=== PATIENT | female | born 2005 | race Caucasian/White ===

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

== ENCOUNTER 2024-07-14 18:52 | Emergency (ER) | payer OTHER ==
[~2024-07-14] VITALS: Ht 165.1 cm; Wt 68.0 kg
[~2024-07-14 18:52] MED LIST changes: -ACETAMINOPHEN 325 MG TAB PO ONE; +AZITHROMYCIN250 MG PO; +CYCLOBENZAPRINE10 MG PO; -DIATRIZOATE MEGL/DIATRIZOA SOD 30 ML BTL PO ONE; +DICYCLOMINE HCL20 MG PO; -DIPHENHYDRAMINE HCL INJ 50 MG/ML VIAL IV ONE; -EPINEPHRINE 2.25% INH NEBU SOL 0.5 ML VIAL INH STA; -EPINEPHRINE HCL 1:1000 1ML 1 MG/ML AMP ONE; -EPINEPHRINE HCL SYRINGE INJ ONE; -IOPAMIDOL 370 MG/ML 200 ML INFUS..BTL INJ ONE; -KETOROLAC TROMETHAMINE 30 MG/ML VIAL IV STA; +MACROBID 100 M100 MG PO; -METHYLPREDNISOLONE SOD SUCC 125 MG/2ML VIAL IV ONE; -MORPHINE SULFATE INJ 4 MG/ML INJ 1ML IV STA; -ONDANSETRON HCL INJ 2MG/ML 2ML 2 MG/ML VIAL IV STA; +ONDANSETRON ODT4 MG PO; -PIPER-TAZ 3.375 GM 50 ML IV ONE; -SODIUM CHLORIDE 0.9% 1000ML 1,000 ML IV STA; -SODIUM CHLORIDE 0.9% 50ML 50 ML ONE
[2024-07-14 18:56] VITALS: PULSE 78; RESP 18; TEMP 98.2
[2024-07-14 19:20] LABS: BILIRUBIN,URINE NEGATIVE (NEGATIVE); CLARITY,URINE CLOUDY (CLEAR); COLOR,URINE YELLOW (YELLOW); GLUCOSE, URINE NEGATIVE (NEGATIVE); KETONES,URINE NEGATIVE (NEGATIVE); LEUKOCYTE ESTERASE ,URINE 1+ (NEGATIVE); NITRITE,URINE NEGATIVE (NEGATIVE); PH,URINE 6.5 (5 - 7); PROTEIN,URINE DIPSTICK NEGATIVE (NEGATIVE); URINE UROBILINOGEN 0.2 mg/dL (0.2 - 1)
[2024-07-14 19:21] LABS: PREGNANCY TEST, URINE NEGATIVE (NEGATIVE)
[2024-07-14] MEDS ORDERED: METRONIDAZOLE500 MG PO (19:31)
[2024-07-14 19:35] LABS: EPITHELIAL CELLS,URINE MANY /LPF; WBC,URINE (MAN) 21-50 /HPF (0-5)
[2024-07-14 19:36] LABS: BACTERIA,URINE MODERATE /HPF
[2024-07-14] MEDS ORDERED: CEFDINIR300 MG PO (19:39)
[2024-07-14 19:51] VITALS: BP 117/79; PULSE 76; RESP 18; TEMP 98.2; O2SAT 98
== END 2024-07-14 19:52 | disposition home or self-care (01) ==
LOC: ER 18:57
DX: R10.2 Pelvic and perineal pain (principal); N39.0 Urinary tract infection, site not specified; N76.0 Acute vaginitis
CPT/HCPCS: 81001; 81025; 99283

== ENCOUNTER 2025-01-28 14:40 | Emergency (ER) | payer OTHER ==
[~2025-01-28] VITALS: Ht 165.1 cm; Wt 68.0 kg
[~2025-01-28 14:40] MED LIST changes: +CEFDINIR300 MG PO; +METRONIDAZOLE500 MG PO
[2025-01-28 14:59] VITALS: PULSE 91; RESP 18; TEMP 98.4; O2SAT 100
[2025-01-28] MEDS: IBUPROFEN 600 MG TAB PO STA (15:26)
[2025-01-28] MEDS: TRAMADOL HCL 50 MG TAB PO ONE (15:26)
[2025-01-28] MEDS ORDERED: NAPROXEN250 MG PO (17:14)
== END 2025-01-28 19:05 | disposition home or self-care (01) ==
LOC: ER 15:36
DX: S93.491A Sprain of other ligament of right ankle, initial encounter (principal); W01.0XXA Fall on same level from slipping, tripping and stumbling without subsequent striking against object, initial encounter; Y93.01 Activity, walking, marching and hiking; Y92.89 Other specified places as the place of occurrence of the external cause
CPT/HCPCS: 99283